=== PATIENT | male | born 1980 | race Caucasian/White ===

== ENCOUNTER 2018-04-28 20:14 | Emergency (ER) | payer MEDICAID, OTHER ==
[~2018-04-28] VITALS: Ht 182.9 cm; Wt 68.0 kg
[2018-04-28 20:23] VITALS: BP 112/71
[2018-04-28] MEDS ORDERED: LIDOcaine 1% 30ml preserv. free vial IJ ONE (20:40)
[2018-04-28] MEDS ORDERED: CEPH500C5 PO (21:25)
== END 2018-04-28 21:47 | disposition left against medical advice (07) ==
LOC: ER 20:16
DX: S60.451A Superficial foreign body of left index finger, initial encounter (principal); W22.8XXA Striking against or struck by other objects, initial encounter; Y93.89 Activity, other specified; Y92.69 Other specified industrial and construction area as the place of occurrence of the external cause; Y99.9 Unspecified external cause status
CPT/HCPCS: 64450; 99284; J3490